=== PATIENT | male | born 1995 | race Caucasian/White ===

== ENCOUNTER 2016-12-15 18:45 | Emergency (ER) | payer OTHER ==
[~2016-12-15] VITALS: Ht 188 cm; Wt 90.7 kg
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
[2016-12-15 19:13] VITALS: BP 132/74
== END 2016-12-15 19:13 ==
LOC: ERH 18:45
DX: S01.01XA Laceration without foreign body of scalp, initial encounter (principal); S09.90XA Unspecified injury of head, initial encounter; V49.40XA Driver injured in collision with unspecified motor vehicles in traffic accident, initial encounter; Y92.410 Unspecified street and highway as the place of occurrence of the external cause